=== PATIENT | male | born 1950 ===

== ENCOUNTER 2018-07-10 13:04 | Emergency (ER) | payer OTHER ==
[2018-07-10 13:42] VITALS: RESP 16; TEMP 97; O2SAT 96
[2018-07-10 14:38] LABS: BLOOD UREA NITROGEN 16 mg/dl (9-20); GFR NON-AFRICAN AMERICAN > 60
[2018-07-10 14:39] LABS: SQUAMOUS EPITHIAL 1 /hpf (0-5); URINE BILIRUBIN NEGATIVE (NEGATIVE); URINE BLOOD LARGE (NEGATIVE); URINE CLARITY CLOUDY (Clear); URINE COLOR RED (YELLOW); URINE GLUCOSE (UA) NEG (NEGATIVE); URINE LEUKOCYTE ESTERASE NEG Leu/uL (Negative); URINE PROTEIN 100 mg/dL (NEGATIVE); URINE UROBILINOGEN 0.2-1.0 mg/dL (0.2-1.0)
[2018-07-10 14:39] LABS: EOS # 0.1 K/uL (0.0-0.7); EOS % 2.9 % (0.0-4.0); HEMOGLOBIN 13.8 g/dL (12.0-18.0); LYMPH # 1.4 K/uL (1.0-4.3); LYMPH % 30.8 % (20.0-40.0); MEAN CELL VOLUME 90.3 fl (80.0-94.0); MEAN CORPUSCULAR HEMOGLOBIN 30.3 pg (27.0-31.0); MEAN CORPUSCULAR HGB CONC 33.5 g/dL (33.0-37.0); MEAN PLATELET VOLUME 8.4 fl (7.2-11.7); MONO # 0.5 K/uL (0.0-0.8); MONO % 10.3 % (0.0-10.0); NEUT # 2.5 K/uL (1.8-7.0); NRBC % 0.1 % (0.0-0.0); RBC 4.54 Mil/uL (4.40-5.90); WHITE BLOOD COUNT 4.5 K/uL (4.8-10.8)
--- NOTE | 2018-07-10 16:08 | CT ---
Date of service: 07/10/2018 PROCEDURE: CT abdomen pelvis HISTORY: Rule out kidney stone COMPARISON: None. TECHNIQUE: Contiguous axial images of the abdomen and pelvis performed in standard fashion without oral or intravenous contrast material. Additional 2D sagittal and coronal reformats generated. Radiation dose: Total exam DLP = 460.63 mGy-cm. This CT exam was performed using one or more of the following dose reduction techniques: Automated exposure control, adjustment of the mA and/or kV according to patient size, and/or use of iterative reconstruction technique. FINDINGS: LOWER THORAX: Lung bases clear. No infiltrate effusion or basilar pneumothorax. Heart size within range of normal. No significant pericardial effusion. Small hiatal hernia. LIVER: Liver exhibits normal size and attenuation pattern without mass collection or calcification. GALLBLADDER AND BILE DUCTS: Cholecystectomy PANCREAS: Unremarkable. No mass. No ductal dilatation. SPLEEN: Unremarkable. No splenomegaly. ADRENALS: No adrenal lesions. KIDNEYS AND URETERS: Unremarkable. No stone or hydronephrosis. 2.4 cm cyst upper pole right kidney. BLADDER: Urinary bladder is incompletely distended which in part account for slight thick-walled appearance. Muscular hypertrophy may contribute. REPRODUCTIVE: Prostate gland measures 4.4 cm in transverse dimension. Prostatic calcifications are present. APPENDIX: No evidence of acute appendicitis BOWEL: Evaluation of the bowel slightly limited due to the lack of oral contrast material. Stomach is distended with food debris liquid and air. Visualized of small bowel exhibit normal contour and caliber. No evidence of acute mechanical small bowel obstruction. Scattered colonic diverticula are seen with no radiographic evidence of acute diverticulitis. There appears to be submucosal fat deposition throughout the colon; rule out sequela of chronic inflammation. Colon PERITONEUM: Unremarkable. No fluid collection. No free air. Small fat containing umbilical hernia and small bilateral inguinal hernias left larger than right LYMPH NODES: No bulky adenopathy. VASCULATURE: Unremarkable. No aortic aneurysm. Minor aortic atherosclerotic calcification or mural plaque present. BONES: Mild multilevel degenerative spondylosis of the lower thoracic and lumbar spine. OTHER FINDINGS: None. IMPRESSION: 2.4 cm cyst upper pole right kidney. No evidence of nephrolithiasis or hydronephrosis. Urinary bladder wall slightly thickened part due to incomplete distention and muscular hypertrophy however correlation with urinalysis recommended to exclude cystitis. Cholecystectomy. Scattered colonic diverticula without radiographic evidence of acute diverticulitis. Suspect submucosal fat deposition scattered throughout the colon; rule out sequela of chronic inflammation
--- NOTE | 2018-07-10 16:35 | ED PDOC ---
HPI: Male Pain Time Seen by Provider: 07/10/18 15:36 Chief Complaint (Nursing): Male Genitourinary Chief Complaint (Provider): Male Genitourinary History Per: Patient, Family (son translating) History/Exam Limitations: no limitations Onset/Duration Of Symptoms: Days (x3) Current Symptoms Are (Timing): Still Present Additional Complaint(s): 67 year old male presents to the ED for evaluation of hematuria with clots for the past three days associated with mild left sided back and lower abdominal pain. Denies nausea, vomiting, dysuria, testicular pain / swelling, penile discharge, anti-coagulant use, and personal or family history of kidney stones. Of note, patient reports having a "prostate issue" which makes him urinate frequently at nights. PMD: Javi Resendiz Past Medical History Reviewed: Historical Data, Nursing Documentation, Vital Signs Vital Signs: Last Vital Signs Temp 97 F L 07/10/18 13:40 Pulse 75 07/10/18 13:40 Resp 16 07/10/18 13:40 BP 131/67 07/10/18 13:40 Pulse Ox 96 07/10/18 13:40 - Medical History PMH: Depression, Hypothyroidism Other PMH: prostate issue (?) - Surgical History Surgical History: Cholecystectomy Other surgeries: knee surgery - Family History Family History: States: Unknown Family Hx - Social History Current smoker - smoking cessation education provided: No Alcohol: None Drugs: Denies - Immunization History Hx Tetanus Toxoid Vaccination: No Hx Influenza Vaccination: No Hx Pneumococcal Vaccination: No - Home Medications Home Medications: Ambulatory Orders Medication Instructions Recorded No Known Home Med 12/16/16 - Allergies Allergies/Adverse Reactions: Allergies Allergy/AdvReac Type Severity Reaction Status Date / Time No Known Allergies Allergy Verified 07/10/18 13:39 Review of Systems ROS Statement: Except As Marked, All Systems Reviewed And Found Negative Gastrointestinal: Positive for: Abdominal Pain (left lower). Negative for: Nausea, Vomiting Genitourinary Male: Positive for: Frequency (baseline with prostate issue), Hematuria (with clots). Negative for: Dysuria, Penile Discharge, Other (testicular pain or swelling) Musculoskeletal: Positive for: Back Pain (left sided) Physical Exam - Reviewed Nursing Documentation Reviewed: Yes Vital Signs Reviewed: Yes - Physical Exam Comments: GENERAL APPEARANCE: Patient is awake, alert, oriented x 3, well appearing and in no obvious discomfort SKIN: Warm, dry; (-) cyanosis. EYES: (-) conjunctival pallor, (-) scleral icterus. ENMT: Mucous membranes moist. NECK: (-) tenderness, (-) stiffness, (-) lymphadenopathy. CHEST AND RESPIRATORY: (-) rales, (-) rhonchi, (-) wheezes; breath sounds equal bilaterally. HEART AND CARDIOVASCULAR: (-) irregularity; (-) murmur, (-) gallop. ABDOMEN AND GI: (-) distention. Bowel sounds active; (+) mild tenderness in LLQ. (-) guarding, (-) rebound, (-) palpable masses, (-) organomegaly. (+) very mild left CVA tenderness, (-) right CVA tenderness. GENITOURINARY: Urine in cup is bright red with 2 small clots present. (-) inguinal lymphadenopathy EXTREMITIES: (-) deformity, (-) edema, (+) distal pulses. NEURO AND PSYCH: Mental status as above; (-) focal findings. - Laboratory Results Result Diagrams: 07/10/18 14:17 07/10/18 14:17 Lab Results: Urine Color Red (YELLOW) 07/10/18 14:20 Urine Clarity Cloudy (Clear) 07/10/18 14:20 Urine pH 6.0 (5.0-8.0) 07/10/18 14:20 Ur Specific [place] 1.009 (1.003-1.030) 07/10/18 14:20 Urine Protein 100 mg/dL (NEGATIVE) 07/10/18 14:20 Urine Glucose (UA) Neg mg/dL (NEGATIVE) 07/10/18 14:20 Urine Ketones Negative mg/dL (NEGATIVE) 07/10/18 14:20 Urine Blood Large (NEGATIVE) 07/10/18 14:20 Urine Nitrate Negative (NEGATIVE) 07/10/18 14:20 Urine Bilirubin Negative (NEGATIVE) 07/10/18 14:20 Urine Urobilinogen 0.2-1.0 mg/dL (0.2-1.0) 07/10/18 14:20 Ur Leukocyte Esterase Neg Andres/uL (Negative) 07/10/18 14:20 Urine RBC (Auto) 3269 /hpf (0-3) H 07/10/18 14:20 Urine Microscopic WBC 2 /hpf (0-5) 07/10/18 14:20 Ur Squamous Epith Cells 1 /hpf (0-5) 07/10/18 14:20 - ECG O2 Sat by Pulse Oximetry: 96 (RA) Pulse Ox Interpretation: Normal Medical Decision Making Medical Decision Making: Time: 1403 Initial Impression: kidney stones workup Initial Plan: --CT abd/pelvis w/o contrast --BMP --CBC with differential --Toradol 30mg IVP --Urine culture --Urinalysis --Reevaluation Discussed case with Dr. Rodriguez, recommends CPK to r/o rhabdo CT report reviewed, no stones, possible cystitis, UA does not show signs of cystitis, just blood 18:50 pt is feeling well, did not want anything for pain, abdomen is currently soft and non tender CPK slightly elevated, not concerned for rhabdo, will give urology follow up used language line [id number] to discussed with pt results, diagnosis, treatment, return precautions and f/u, pt is understanding, in agreement and stable for dc Scribe Attestation: Documented by Le Scales, acting as a scribe for Jarvis Garcia PA-C. Provider Scribe Attestation: All medical record entries made by the Scribe were at my direction and personally dictated by me. I have reviewed the chart and agree that the record accurately reflects my personal performance of the history, physical exam, medical decision making, and the department course for this patient. I have also personally directed, reviewed, and agree with the discharge instructions and disposition. Disposition - Clinical Impression Clinical Impression: Hematuria - Patient ED Disposition Is Patient to be Admitted: No Counseled Patient/Family Regarding: Studies Performed, Diagnosis, Need For Followup - Disposition Referrals: Fredi Resendez MD [Medical Doctor] - Javi Resendiz MD [Family Provider] - Disposition: Routine/Home Disposition Time: 18:53 Condition: STABLE Additional Instructions: Volver a la ED para los sntomas nuevos o empeoramiento, fiebre > 100,4, aumento del dolor abdominal, vmitos. Siga con urologa any se indica y duval mdico de cabecera en 3-5 steele. Return to ED for new or worsening symptoms, fever >100.4, increasing abdominal pain, vomiting. FOllow up with urology as listed and your primary doctor in 3-5 days. Instructions: Blood in the Urine (Hematuria), Adult (DC) Forms: [employer] (Martiniquais), [employer] (Greek) Print Language: ALBANIAN - POA Present On Arrival: None Results - Diagnostic Imaging Results Radiology Results Abdomen/Pelvis CT 07/10/18 14:03 IMPRESSION: 2.4 cm cyst upper pole right kidney. No evidence of nephrolithiasis or hydronephrosis. Urinary bladder wall slightly thickened part due to incomplete distention and muscular hypertrophy however correlation with urinalysis recommended to exclude cystitis. Cholecystectomy. Scattered colonic diverticula without radiographic evidence of acute diverticulitis. Suspect submucosal fat deposition scattered throughout the colon; rule out sequela of chronic inflammation - Lab Results Lab Results: 07/10/18 07/10/18 07/10/18 17:59 14:20 14:17 WBC 4.5 L RBC 4.54 Hgb 13.8 Hct 41.0 MCV 90.3 MCH 30.3 MCHC 33.5 RDW 13.0 Plt Count 120 L MPV 8.4 Neut % (Auto) 55.0 Lymph % (Auto) 30.8 Ida % (Auto) 10.3 H Eos % (Auto) 2.9 Baso % (Auto) 1.0 Neut # (Auto) 2.5 Lymph # (Auto) 1.4 Ida # (Auto) 0.5 Eos # (Auto) 0.1 Baso # (Auto) 0.0 Sodium Potassium Chloride Carbon Dioxide Anion Gap BUN Creatinine Est GFR ( Amer) Est GFR (Non-Af Amer) Random Glucose Calcium Total Creatine Kinase 235 H Urine Color Red Urine Clarity Cloudy Urine pH 6.0 Ur Specific [place] 1.009 Urine Protein 100 Urine Glucose (UA) Neg Urine Ketones Negative Urine Blood Large Urine Nitrate Negative Urine Bilirubin Negative Urine Urobilinogen 0.2-1.0 Ur Leukocyte Esterase Neg Urine RBC (Auto) 3269 H Urine Microscopic WBC 2 Ur Squamous Epith Cells 1 07/10/18 14:17 WBC RBC Hgb Hct MCV MCH MCHC RDW Plt Count MPV Neut % (Auto) Lymph % (Auto) Ida % (Auto) Eos % (Auto) Baso % (Auto) Neut # (Auto) Lymph # (Auto) Ida # (Auto) Eos # (Auto) Baso # (Auto) Sodium 139 Potassium 3.7 Chloride 108 H Carbon Dioxide 24 Anion Gap 11 BUN 16 Creatinine 0.8 Est GFR ( Amer) > 60 Est GFR (Non-Af Amer) > 60 Random Glucose 106 Calcium 9.0 Total Creatine Kinase Urine Color Urine Clarity Urine pH Ur Specific [place] Urine Protein Urine Glucose (UA) Urine Ketones Urine Blood Urine Nitrate Urine Bilirubin Urine Urobilinogen Ur Leukocyte Esterase Urine RBC (Auto) Urine Microscopic WBC Ur Squamous Epith Cells
[2018-07-10 23:49] VITALS: BP 128/76; PULSE 78
== END 2018-07-10 18:57 | disposition home or self-care (01) ==
LOC: H.ER 13:04
DX: R31.9 Hematuria, unspecified (principal); N28.1 Cyst of kidney, acquired; K57.32 Diverticulitis of large intestine without perforation or abscess without bleeding